=== PATIENT | male | born 1990 | race African-American/Black ===

== ENCOUNTER 2024-01-29 04:06 | Emergency (ER) | payer OTHER ==
[2024-01-29 04:15] VITALS: BMI 25.0
[2024-01-29] MEDS ORDERED: diphenhydrAMINE HCL 25 MG CAPSULE (FP) PO ONE (04:44)
[2024-01-29] MEDS ORDERED: FAMOTIDINE 10 MG TABLET ONE (04:44)
[2024-01-29] MEDS ORDERED: DEXAMETHASONE SOD PHOSPHATE 10 MG/1 ML VIAL ONE (04:45)
[2024-01-29] MEDS: FAMOTIDINE 10 MG TABLET PO ONE (04:49)
[2024-01-29] MEDS: diphenhydrAMINE HCL 25 MG CAPSULE (FP) PO ONE (04:50)
[2024-01-29] MEDS: DEXAMETHASONE LIQUID 0.5 MG/5 ML PO ONE (04:50)
[2024-01-29] MEDS: DEXAMETHASONE SOD PHOSPHATE 10 MG/1 ML VIAL IVPUSH ONE (04:57)
[2024-01-29 05:40] LABS: BASO % 0.6 % (0-2.0); EOS % 0.2 % (0-4.5); HEMATOCRIT 43.2 % (35.4-49); HEMOGLOBIN 14.2 GM/dL (11.7-16.9); LYMPH % 18.2 % (8-40); MCH 29.8 pg (25.7-33.7); MCHC 32.8 g/dl (32.0-35.9); MEAN CELL VOLUME 90.6 fl (80-96); MEAN PLT VOLUME 7.7 fl (7.5-11.1); MONO % 4.5 % (3.8-10.2); NEUT % 76.5 % (42.8-82.8); PLATELET COUNT 327 10^3/uL (134-434); RBC 4.77 M/mm3 (4.00-5.60); RDW 17.8 % (11.9-15.9); WHITE BLOOD COUNT 9.4 K/mm3 (4.0-10.0)
[2024-01-29 05:56] VITALS: BP 136/86; PULSE 89; RESP 18; TEMP 98.4
[2024-01-29 06:16] LABS: POTASSIUM 3.9 mmol/L (3.5-5.1)
[2024-01-29 06:18] LABS: ALBUMIN 3.3 g/dl (3.4-5.0); BLOOD UREA NITROGEN 15.8 mg/dL (7-18); CALCIUM 8.8 mg/dL (8.5-10.1)
[2024-01-29 06:21] LABS: CREATININE 0.8 mg/dL (0.55-1.3)
[2024-01-29 06:23] LABS: BILIRUBIN,TOTAL 0.7 mg/dL (0.2-1); TOT PROT 6.2 g/dl (6.4-8.2)
== END 2024-01-29 06:43 | disposition home or self-care (01) ==
LOC: JER 04:06
DX: T78.40XA Allergy, unspecified, initial encounter (principal); L29.9 Pruritus, unspecified; L50.0 Allergic urticaria; R19.7 Diarrhea, unspecified
CPT/HCPCS: 36415; 80053; 85025; 99283-25

== ENCOUNTER 2024-03-21 01:49 | Observation (INO) | payer OTHER ==
[2024-03-21] MEDS ORDERED: DEXAMETHASONE SOD PHOSPHATE 10 MG/1 ML VIAL IM ONE (02:17)
[2024-03-21] MEDS ORDERED: diphenhydrAMINE HCL 25 MG CAPSULE (FP) PO ONE (02:21)
[2024-03-21] MEDS ORDERED: FAMOTIDINE 20 MG TABLET ONE (02:21)
[2024-03-21] MEDS ORDERED: predniSONE 20 MG TABLET (UD) ONE (02:21)
[2024-03-21] MEDS: FAMOTIDINE 10 MG TABLET PO ONE ×2 (02:40)
[2024-03-21] MEDS: predniSONE 20 MG TABLET (UD) PO ONE (02:40)
[2024-03-21] MEDS: diphenhydrAMINE HCL 50 MG CAPSULE PO ONE (02:40)
[2024-03-21] MEDS ORDERED: EPINEPHrine/PF 1 MG/1 ML (1:1,000) AMPULE ONE (04:11)
[2024-03-21] MEDS ORDERED: TRANEXAMIC ACID 1000 MG/10 ML VIAL ONE (04:14)
[2024-03-21] MEDS: EPINEPHrine 1:1,000 0.3 MG/0.3 ML SYR IM ONE (04:14)
[2024-03-21] MEDS: TRANEXAMIC ACID 1000 MG/10 ML VIAL IVPB ONE (04:26)
[2024-03-21 06:37] LABS: HEMATOCRIT 39.2 % (35.4-49); HEMOGLOBIN 13.3 GM/dL (11.7-16.9); MCH 31.7 pg (25.7-33.7); MCHC 33.9 g/dl (32.0-35.9); MEAN CELL VOLUME 93.4 fl (80-96); MEAN PLT VOLUME 7.1 fl (7.5-11.1); PLATELET COUNT 329 10^3/uL (134-434); RDW 14.7 % (11.9-15.9); WHITE BLOOD COUNT 6.9 K/mm3 (4.0-10.0)
[2024-03-21 06:57] LABS: POTASSIUM 3.9 mmol/L (3.5-5.1)
[2024-03-21 07:00] LABS: CALCIUM 8.9 mg/dL (8.5-10.1)
[2024-03-21 07:01] LABS: ALBUMIN 3.5 g/dl (3.4-5.0); BLOOD UREA NITROGEN 8.8 mg/dL (7-18)
[2024-03-21 07:05] LABS: BILIRUBIN,TOTAL 2.3 mg/dL (0.2-1); TOT PROT 6.7 g/dl (6.4-8.2)
[2024-03-21] MEDS ORDERED: ENOXAPARIN NA (PORCINE) 40 MG/0.4 ML DISP.SYRIN SQ ONE (08:54)
[2024-03-21] MEDS: LACTATED RINGERS SOLUTION 1000 ML INFUS.BAG IV ONE (09:00)
[2024-03-21] MEDS: ENOXAPARIN NA (PORCINE) 40 MG/0.4 ML DISP.SYRIN SQ SCH (09:00)
[2024-03-21] MEDS: SODIUM CHLORIDE 0.9% 500 ML INFUS.BAG IV ONE (09:00)
[2024-03-21 09:13] LABS: ERYTHROCYTE SEDIMENTATION RATE 1 mm/hr (0-10)
[2024-03-21 09:21] LABS: BILIRUBIN,DIRECT 0.5 mg/dL (0.0-0.2)
[2024-03-21 09:26] LABS: ANISOCYTOSIS 0; MACROCYTOSIS 0; TARGET CELLS 1+
[2024-03-21 09:34] VITALS: RESP 18
[2024-03-21] MEDS: FAMOTIDINE 20 MG TABLET PO SCH (10:52)
[2024-03-21] MEDS: LORATADINE 10 MG TABLET PO SCH (10:52)
[2024-03-21] MEDS: amLODIPine BESYLATE 10 MG TABLET (FP) PO SCH (10:52)
[2024-03-21 11:27] VITALS: BMI 24.2
[2024-03-22 06:17] VITALS: BP 140/89; PULSE 91; TEMP 98.2
[2024-03-22 09:18] LABS: BASO % 1.1 % (0-2.0); EOS % 0.4 % (0-4.5); HEMATOCRIT 40.6 % (35.4-49); HEMOGLOBIN 13.4 GM/dL (11.7-16.9); LYMPH % 38.7 % (8-40); MCH 31.2 pg (25.7-33.7); MCHC 32.9 g/dl (32.0-35.9); MEAN CELL VOLUME 94.9 fl (80-96); MONO % 8.5 % (3.8-10.2); NEUT % 51.3 % (42.8-82.8); PLATELET COUNT 324 10^3/uL (134-434); RBC 4.28 M/mm3 (4.00-5.60); RDW 14.5 % (11.9-15.9); WHITE BLOOD COUNT 5.4 K/mm3 (4.0-10.0)
[2024-03-22 09:27] LABS: POTASSIUM 3.3 mmol/L (3.5-5.1)
[2024-03-22] MEDS: predniSONE 20 MG TABLET (UD) PO SCH (09:33)
[2024-03-22 09:34] LABS: CREATININE 0.8 mg/dL (0.55-1.3); PHOSPHOROUS 3.8 mg/dL (2.5-4.9)
[2024-03-22 09:35] LABS: BILIRUBIN,TOTAL 1.9 mg/dL (0.2-1); CALCIUM 9.3 mg/dL (8.5-10.1)
[2024-03-22 09:36] LABS: BLOOD UREA NITROGEN 6.4 mg/dL (7-18); MAGNESIUM 1.9 mg/dL (1.8-2.4); TOT PROT 6.3 g/dl (6.4-8.2)
[2024-03-22 09:37] LABS: ALBUMIN 3.3 g/dl (3.4-5.0)
[2024-03-22] MEDS ORDERED: predniSONE 20 MG TABLET (UD) PO SCH (10:00)
[2024-03-22] MEDS: POTASSIUM CHLORIDE ORAL LIQUID 20 MEQ/15 ML PO ONE (11:23)
[2024-03-24 14:09] LABS: COMPLEMENT C1Q COMPONENT < 1.2 ug Eq/mL (.)
== END 2024-03-22 12:39 | disposition home or self-care (01) ==
LOC: JER 01:49 → JERBED 06:34 → J5S 10:02
PROVIDERS: ADMIT Internal Medicine; ATTEND Internal Medicine
PROC: 3E023GC Introduction of Other Therapeutic Substance into Muscle, Percutaneous Approach (ICD-10-PCS; principal; 2024-03-21)
PROC: 3E0337Z Introduction of Electrolytic and Water Balance Substance into Peripheral Vein, Percutaneous Approach (ICD-10-PCS; 2024-03-21)
DX: T78.3XXA Angioneurotic edema, initial encounter (principal); T78.40XA Allergy, unspecified, initial encounter; X58.XXXA Exposure to other specified factors, initial encounter; Y93.89 Activity, other specified; E80.6 Other disorders of bilirubin metabolism; Y92.89 Other specified places as the place of occurrence of the external cause; I10 Essential (primary) hypertension; K21.9 Gastro-esophageal reflux disease without esophagitis; F17.210 Nicotine dependence, cigarettes, uncomplicated
CPT/HCPCS: 36415; 76705-TC; 80053; 82248; 83735; 84100; 85025; 85651; 86140; 86160; 86161; 86162; 86332; 86704; 86709; 86803; 87340; 87517; 93005; 93010; 96372; 96374; 99285-25; G0378; J0171

== ENCOUNTER 2024-05-26 01:53 | Emergency (ER) | payer OTHER ==
[2024-05-26 02:03] VITALS: TEMP 99; BMI 22.1
[2024-05-26] MEDS ORDERED: FAMOTIDINE 20 MG/50 ML IVPB 20 MG/50 ML MG IVPB ONE (02:40)
[2024-05-26] MEDS ORDERED: ONDANSETRON 4 MG/2 ML VIAL ONE (02:40)
[2024-05-26] MEDS ORDERED: ACETAMINOPHEN INJECTION 100 ML IVPB ONE (02:40)
[2024-05-26] MEDS: FAMOTIDINE 20 MG/50 ML IVPB 20 MG/50 ML MG IVPB ONE (02:57)
[2024-05-26] MEDS: ONDANSETRON 4 MG/2 ML VIAL IVPUSH ONE (02:57)
[2024-05-26] MEDS: ACETAMINOPHEN 1000 MG/100 ML BAG IVPB ONE (02:57)
[2024-05-26] MEDS: SODIUM CHLORIDE 0.9% 500 ML INFUS.BAG IV ONE ×2 (02:57→04:58)
[2024-05-26 03:02] LABS: VENOUS BASE EXCESS 2.4 mmol/L (-2-2); VENOUS O2 SATURATION 92.3 % (70-80); VENOUS PCO2 35.7 mmHg (38-52); VENOUS PH 7.474 (7.310-7.410)
[2024-05-26 03:06] LABS: BASO % 1.5 % (0-2.0); EOS % 0.4 % (0-4.5); HEMATOCRIT 44.4 % (35.4-49); LYMPH % 57.4 % (8-40); MCH 30.7 pg (25.7-33.7); MCHC 33.8 g/dl (32.0-35.9); MEAN CELL VOLUME 90.9 fl (80-96); MEAN PLT VOLUME 7.5 fl (7.5-11.1); MONO % 7.4 % (3.8-10.2); NEUT % 33.3 % (42.8-82.8); PLATELET COUNT 281 10^3/uL (134-434); RBC 4.88 M/mm3 (4.00-5.60); RDW 13.5 % (11.9-15.9); WHITE BLOOD COUNT 4.5 K/mm3 (4.0-10.0)
[2024-05-26 03:17] LABS: PROTHROMBIN TIME (PATIENT) 11.3 SEC (9.7-13.0)
[2024-05-26 03:19] LABS: ACTIVATED PTT 28.9 SECONDS (25.2-36.5)
[2024-05-26 03:20] LABS: POTASSIUM 3.4 mmol/L (3.5-5.1)
[2024-05-26 03:24] LABS: ALBUMIN 4.1 g/dl (3.4-5.0); BLOOD UREA NITROGEN 7.2 mg/dL (7-18); CALCIUM 9.1 mg/dL (8.5-10.1)
[2024-05-26 03:26] LABS: CREATININE 0.8 mg/dL (0.55-1.3)
[2024-05-26 03:28] LABS: BILIRUBIN,TOTAL 1.2 mg/dL (0.2-1); TOT PROT 7.2 g/dl (6.4-8.2)
[2024-05-26 03:51] LABS: LACTIC ACID 3.8 mmol/L (0.4-2.0)
[2024-05-26 04:10] LABS: MAGNESIUM 1.9 mg/dL (1.8-2.4)
[2024-05-26 04:10] LABS: EPI CELLS 34 /uL (0-25.1); HYALINE CASTS 21 /uL (0-3.1); URINE APPEARANCE CLEAR; URINE BACTERIA 5 /uL (0-1359); URINE BILIRUBIN NEGATIVE (NEGATIVE); URINE COLOR YELLOW; URINE GLUCOSE (UA) NEGATIVE (NEGATIVE); URINE KETONE TRACE (NEGATIVE); URINE LEUK ESTERASE NEGATIVE (NEGATIVE); URINE NITRITE NEGATIVE (NEGATIVE); URINE PROTEIN 2+ (NEGATIVE); URINE RBC 8 /uL (0-23.9); URINE WBC 51 /uL (0-25.8)
[2024-05-26] MEDS ORDERED: SUCRALFATE 1 GM TABLET (FP) ONE (05:33)
[2024-05-26] MEDS ORDERED: MAG HYDROX/AL HYDROX/SIMETH 30 ML UNIT-DOSE CUP ONE (05:34)
[2024-05-26] MEDS: SUCRALFATE 1 GM TABLET (FP) PO ONE (05:36)
[2024-05-26] MEDS: MAG HYDROX/AL HYDROX/SIMETH 30 ML UNIT-DOSE CUP PO ONE (05:36)
[2024-05-26 05:51] LABS: LACTIC ACID 2.4 mmol/L (0.4-2.0)
[2024-05-26 06:06] VITALS: BP 154/100; PULSE 88; RESP 16
== END 2024-05-26 06:25 | disposition home or self-care (01) ==
LOC: JER 01:53
PROC: 3E033GC Introduction of Other Therapeutic Substance into Peripheral Vein, Percutaneous Approach (ICD-10-PCS; principal; 2024-05-26)
PROC: 3E033GC Introduction of Other Therapeutic Substance into Peripheral Vein, Percutaneous Approach (ICD-10-PCS; 2024-05-26)
PROC: 3E033NZ Introduction of Analgesics, Hypnotics, Sedatives into Peripheral Vein, Percutaneous Approach (ICD-10-PCS; 2024-05-26)
DX: R10.13 Epigastric pain (principal); R11.2 Nausea with vomiting, unspecified; F10.90 Alcohol use, unspecified, uncomplicated; Y90.9 Presence of alcohol in blood, level not specified
CPT/HCPCS: 36415; 74177-TC; 80053; 81003; 82803; 83605; 83690; 83735; 84300; 85025; 85610; 85730; 86850; 86900; 86901; 87086; 99285-25; J0131; Q9967

== ENCOUNTER 2024-05-26 08:56 | Inpatient (IN) | payer OTHER ==
[2024-05-26 09:28] VITALS: BMI 22.2
[2024-05-26] MEDS ORDERED: guaiFENesin 600 MG TABLET.ER (FP) PO PRN (09:58)
[2024-05-26] MEDS ORDERED: MAGNESIUM HYDROX 2400MG/30ML ORAL SUSPENSION 30 ML CUP PO PRN (09:58)
[2024-05-26] MEDS ORDERED: hydrOXYzine PAMOATE 25 MG CAPSULE (FP) PO PRN (09:58)
[2024-05-26] MEDS ORDERED: ACETAMINOPHEN 325 MG TABLET (FP) PO PRN (09:58)
[2024-05-26] MEDS ORDERED: NALOXONE (NARCAN) HCL 4 MG/0.1 ML SPRAY NS PRN (09:58)
[2024-05-26] MEDS ORDERED: ONDANSETRON *ODT* 4 MG TABLET SL PRN (09:58)
[2024-05-26] MEDS ORDERED: IBUPROFEN 600 MG TABLET (FP) PO PRN (09:58)
[2024-05-26] MEDS ORDERED: LOPERAMIDE HCL 2 MG CAPSULE PO PRN (09:58)
[2024-05-26] MEDS ORDERED: NALOXONE HCL 0.4 MG/ML VIAL IM PRN (09:58)
[2024-05-26] MEDS ORDERED: BENZOCAINE/MENTHOL (CHLORASEPTIC ) LOZENGE MM PRN (09:58)
[2024-05-26] MEDS ORDERED: MAG HYDROX/AL HYDROX/SIMETH 30 ML UNIT-DOSE CUP PO PRN (09:58)
[2024-05-26] MEDS ORDERED: BENZONATATE 200 MG CAPSULE PO PRN (09:58)
[2024-05-26] MEDS ORDERED: POLYETHYLENE GLYCOL (HEALTHYLAX) 3350 17 GM PACKET PO PRN (09:58)
[2024-05-26] MEDS ORDERED: IBUPROFEN 400 MG TABLET (FP) PO PRN (09:58)
[2024-05-26] MEDS ORDERED: DICYCLOMINE HCL 10 MG CAPSULE PO PRN (09:58)
[2024-05-26] MEDS: NICOTINE 7 MG/24 HOURS TOPICAL PATCH TD SCH (10:34)
[2024-05-26] MEDS: PRENATAL VITAMINS W/ FOLIC ACID TABLET (FP) PO SCH (10:34)
[2024-05-26] MEDS: BISMUTH SUBSALICYLATE 524 MG/30 ML PO PRN (10:40)
[2024-05-26] MEDS ORDERED: BISMUTH SUBSALICYLATE 262 MG/15 ML BTL PO PRN (11:02)
[2024-05-26] MEDS: amLODIPine BESYLATE 10 MG TABLET (FP) PO ONE (13:55)
[2024-05-26] MEDS: chlordiazePOXIDE HCL 25 MG CAPSULE PO PRN (13:55)
[2024-05-26] MEDS: chlordiazePOXIDE HCL 25 MG CAPSULE PO SCH (17:28)
[2024-05-26] MEDS: THIAMINE 100 MG TABLET PO SCH (22:26)
[2024-05-26] MEDS: MONTELUKAST NA 10 MG TABLET PO SCH (22:26)
[2024-05-26] MEDS: MELATONIN 5 MG TABLETS PO SCH (22:27)
[2024-05-27] MEDS: FAMOTIDINE 20 MG TABLET PO SCH (09:55)
[2024-05-27] MEDS: amLODIPine BESYLATE 10 MG TABLET (FP) PO SCH (09:55)
[2024-05-27] MEDS: METHOCARBAMOL 500 MG TABLET PO PRN (09:55)
[2024-05-27] MEDS: LORATADINE 10 MG TABLET PO SCH (09:55)
[2024-05-27 11:58] LABS: HEMATOCRIT 42.8 % (35.4-49); HEMOGLOBIN 14.1 GM/dL (11.7-16.9); MCH 30.6 pg (25.7-33.7); MCHC 32.9 g/dl (32.0-35.9); MEAN CELL VOLUME 93.2 fl (80-96); MEAN PLT VOLUME 8.1 fl (7.5-11.1); PLATELET COUNT 249 10^3/uL (134-434); RBC 4.59 M/mm3 (4.00-5.60); RDW 13.3 % (11.9-15.9); WHITE BLOOD COUNT 3.7 K/mm3 (4.0-10.0)
[2024-05-27] MEDS: PNEUMOC 20-VAL CONJ-DIP CRM/PF 0.5 ML SYRINGE IM ONE (12:04)
[2024-05-27 12:07] LABS: POTASSIUM 3.6 mmol/L (3.5-5.1)
[2024-05-27 12:18] LABS: BLOOD UREA NITROGEN 5.1 mg/dL (7-18); CALCIUM 9.4 mg/dL (8.5-10.1)
[2024-05-27 12:19] LABS: ALBUMIN 4.2 g/dl (3.4-5.0)
[2024-05-27 12:22] LABS: CREATININE 0.8 mg/dL (0.55-1.3)
[2024-05-27 12:23] LABS: BILIRUBIN,TOTAL 1.9 mg/dL (0.2-1); TOT PROT 7.3 g/dl (6.4-8.2)
[2024-05-27] MEDS: MELATONIN 5 MG TABLETS PO SCH (22:25)
[2024-05-28] MEDS: chlordiazePOXIDE HCL 25 MG CAPSULE PO SCH (05:54)
[2024-05-29] MEDS ORDERED: chlordiazePOXIDE HCL 10 MG CAPSULE PO PRN
[2024-05-29] MEDS: chlordiazePOXIDE HCL 10 MG CAPSULE PO SCH (05:41)
[2024-05-29] MEDS: chlordiazePOXIDE HCL 25 MG CAPSULE PO ONE (14:29)
[2024-05-29] MEDS: LACTULOSE 20 GM/30 ML UDC (FOR ORAL USE ONLY) PO SCH (17:46)
[2024-05-30] MEDS: chlordiazePOXIDE HCL 10 MG CAPSULE PO SCH (05:42)
[2024-05-31] MEDS: chlordiazePOXIDE HCL 10 MG CAPSULE PO ONE (05:35)
[2024-05-31 08:56] VITALS: BP 136/88; PULSE 90; RESP 17; TEMP 98.9
== END 2024-05-31 10:00 | disposition home or self-care (01) | DRG 775 ==
LOC: YASAS 08:56 → Y6N 11:20
PROVIDERS: ADMIT Allergy & Immunology; ATTEND Family Medicine Addiction Medicine
PROC: HZ2ZZZZ Detoxification Services for Substance Abuse Treatment (ICD-10-PCS; principal; 2024-05-26)
DX: F10.230 Alcohol dependence with withdrawal, uncomplicated (principal); F17.210 Nicotine dependence, cigarettes, uncomplicated; F10.282 Alcohol dependence with alcohol-induced sleep disorder; F32.9 Major depressive disorder, single episode, unspecified; F41.9 Anxiety disorder, unspecified; I10 Essential (primary) hypertension; K21.9 Gastro-esophageal reflux disease without esophagitis; R79.89 Other specified abnormal findings of blood chemistry; Z91.410 Personal history of adult physical and sexual abuse; Z63.0 Problems in relationship with spouse or partner
CPT/HCPCS: 36415; 74177-TC; 80053; 80305; 80307; 81003; 82140; 82247; 82803; 83605; 83690; 83735; 84300; 85025; 85027; 85610; 85730; 86780; 86850; 86900; 86901; 87086; 90677; 93005; 93010; G0009; J0131; Q9967

== ENCOUNTER 2024-06-05 11:46 | Inpatient (IN) | payer OTHER ==
[2024-06-05 12:06] VITALS: BMI 22.9
[2024-06-05] MEDS ORDERED: diazePAM 5 MG TABLET PO PRN (13:47)
[2024-06-05] MEDS ORDERED: IBUPROFEN 400 MG TABLET (FP) PO PRN (13:48)
[2024-06-05] MEDS ORDERED: guaiFENesin 600 MG TABLET.ER (FP) PO PRN (13:48)
[2024-06-05] MEDS ORDERED: BENZOCAINE/MENTHOL (CHLORASEPTIC ) LOZENGE MM PRN (13:48)
[2024-06-05] MEDS ORDERED: BENZONATATE 200 MG CAPSULE PO PRN (13:48)
[2024-06-05] MEDS ORDERED: POLYETHYLENE GLYCOL (HEALTHYLAX) 3350 17 GM PACKET PO PRN (13:48)
[2024-06-05] MEDS ORDERED: ONDANSETRON *ODT* 4 MG TABLET SL PRN (13:48)
[2024-06-05] MEDS ORDERED: NALOXONE (NARCAN) HCL 4 MG/0.1 ML SPRAY NS PRN (13:48)
[2024-06-05] MEDS ORDERED: NALOXONE HCL 0.4 MG/ML VIAL IM PRN (13:48)
[2024-06-05] MEDS ORDERED: MAGNESIUM HYDROX 2400MG/30ML ORAL SUSPENSION 30 ML CUP PO PRN (13:48)
[2024-06-05] MEDS ORDERED: LOPERAMIDE HCL 2 MG CAPSULE PO PRN (13:48)
[2024-06-05] MEDS ORDERED: ACETAMINOPHEN 325 MG TABLET (FP) PO PRN (13:48)
[2024-06-05] MEDS ORDERED: ALBUTEROL SO4 HFA INHALER IH PRN (13:54)
[2024-06-05] MEDS: amLODIPine BESYLATE 10 MG TABLET (FP) PO SCH (14:17)
[2024-06-05] MEDS: NICOTINE 21 MG/24 HOURS TOPICAL PATCH TD SCH (14:22)
[2024-06-05] MEDS: LACTULOSE 20 GM/30 ML UDC (FOR ORAL USE ONLY) PO SCH (14:23)
[2024-06-05] MEDS: FAMOTIDINE 20 MG TABLET PO SCH (14:24)
[2024-06-05] MEDS ORDERED: BACITRACIN 0.9 GM PACKET TP SCH (14:31)
[2024-06-05] MEDS: BACITRACIN 0.9 GM PACKET TP SCH (14:54)
[2024-06-05] MEDS: BACITRACIN ZINC 15 GM TUBE TOPICAL OINTMENT TP SCH (15:00)
[2024-06-05] MEDS: diazePAM 5 MG TABLET PO SCH (17:17)
[2024-06-05] MEDS: DICYCLOMINE HCL 10 MG CAPSULE PO PRN (20:10)
[2024-06-05] MEDS: MONTELUKAST NA 10 MG TABLET PO SCH (22:25)
[2024-06-05] MEDS: MELATONIN 5 MG TABLETS PO SCH (22:25)
[2024-06-05] MEDS: THIAMINE 100 MG TABLET PO SCH (22:25)
[2024-06-05] MEDS: METHOCARBAMOL 500 MG TABLET PO PRN (22:26)
[2024-06-06] MEDS: BISMUTH SUBSALICYLATE 524 MG/30 ML PO PRN (00:56)
[2024-06-06] MEDS: MAG HYDROX/AL HYDROX/SIMETH 30 ML UNIT-DOSE CUP PO PRN (04:36)
[2024-06-06 09:03] LABS: HEMATOCRIT 41.5 % (35.4-49); MCH 30.3 pg (25.7-33.7); MCHC 33.8 g/dl (32.0-35.9); MEAN CELL VOLUME 89.7 fl (80-96); MEAN PLT VOLUME 7.6 fl (7.5-11.1); PLATELET COUNT 329 10^3/uL (134-434); RBC 4.63 M/mm3 (4.00-5.60); RDW 13.7 % (11.9-15.9)
[2024-06-06 09:05] LABS: CHLORIDE 101 mmol/L (98-107); POTASSIUM 3.5 mmol/L (3.5-5.1); SODIUM 137 mmol/L (136-145)
[2024-06-06 09:08] LABS: GLUCOSE,RANDOM 115 mg/dL (74-106)
[2024-06-06 09:10] LABS: ALBUMIN 3.8 g/dl (3.4-5.0); ANION GAP 7 mmol/L (4-13); BLOOD UREA NITROGEN 5.7 mg/dL (7-18); CALCIUM 9.2 mg/dL (8.5-10.1); CO2 29 mmol/L (21-32)
[2024-06-06 09:12] LABS: CREATININE 0.8 mg/dL (0.55-1.3); SGOT/AST 51 U/L (15-37); SGPT/ALT 65 U/L (13-61)
[2024-06-06 09:14] LABS: ALK PHOS 95 U/L (45-117); BILIRUBIN,TOTAL 1.4 mg/dL (0.2-1)
[2024-06-06] MEDS: PRENATAL VITAMINS W/ FOLIC ACID TABLET (FP) PO SCH (10:16)
[2024-06-06] MEDS ORDERED: cloNIDine HCL 0.1 MG TABLET PO PRN (13:36)
[2024-06-06] MEDS: LISINOPRIL 10 MG TABLET PO SCH (14:30)
[2024-06-06] MEDS: TRIMETHOBENZAMIDE HCL 200MG/2ML INJ IM PRN (20:07)
[2024-06-06] MEDS: PANTOPRAZOLE 40 MG TABLET PO ONE (20:07)
[2024-06-06] MEDS: MELATONIN 5 MG TABLETS PO SCH (22:08)
[2024-06-07] MEDS: diazePAM 5 MG TABLET PO SCH (05:18)
[2024-06-08] MEDS: diazePAM 5 MG TABLET PO SCH (05:18)
[2024-06-08] MEDS: LISINOPRIL 5 MG TABLET PO SCH (09:40)
[2024-06-08] MEDS: SUVOREXANT 10 MG TABLET PO PRN (22:17)
[2024-06-08] MEDS: hydrOXYzine PAMOATE 25 MG CAPSULE (FP) PO PRN (22:18)
[2024-06-09] MEDS: IBUPROFEN 600 MG TABLET (FP) PO PRN (01:27)
[2024-06-09] MEDS: diazePAM 5 MG TABLET PO ONE (05:11)
[2024-06-09] MEDS: SUCRALFATE 1 GM TABLET (FP) PO SCH (06:04)
[2024-06-09 09:47] VITALS: BP 112/70; PULSE 101; RESP 20; TEMP 97.8
== END 2024-06-09 09:49 | disposition home or self-care (01) | DRG 775 ==
LOC: YASAS 11:46 → Y6N 13:21
PROVIDERS: ADMIT Allergy & Immunology; ATTEND Surgery
PROC: HZ2ZZZZ Detoxification Services for Substance Abuse Treatment (ICD-10-PCS; principal; 2024-06-05)
DX: F10.230 Alcohol dependence with withdrawal, uncomplicated (principal); F10.282 Alcohol dependence with alcohol-induced sleep disorder; F17.210 Nicotine dependence, cigarettes, uncomplicated; F41.9 Anxiety disorder, unspecified; F32.A Depression, unspecified; I10 Essential (primary) hypertension; E72.20 Disorder of urea cycle metabolism, unspecified; K21.9 Gastro-esophageal reflux disease without esophagitis; J45.20 Mild intermittent asthma, uncomplicated; G47.00 Insomnia, unspecified; Z91.51 Personal history of suicidal behavior; Z56.0 Unemployment, unspecified
CPT/HCPCS: 36415; 80053; 80305; 80307; 82140; 82247; 85027; 86780; 93005; 93010

== ENCOUNTER 2024-11-12 02:53 | Inpatient (IN) | payer SELFPAY ==
[2024-11-12 03:20] VITALS: BMI 20.6
[2024-11-12] MEDS ORDERED: LOPERAMIDE HCL 2 MG CAPSULE PO PRN (04:23)
[2024-11-12] MEDS ORDERED: ONDANSETRON *ODT* 4 MG TABLET SL PRN (04:23)
[2024-11-12] MEDS ORDERED: BENZOCAINE/MENTHOL (CHLORASEPTIC ) LOZENGE MM PRN (04:23)
[2024-11-12] MEDS ORDERED: POLYETHYLENE GLYCOL (HEALTHYLAX) 3350 17 GM PACKET PO PRN (04:23)
[2024-11-12] MEDS ORDERED: NICOTINE POLACRILEX 2 MG GUM BUC PRN (04:23)
[2024-11-12] MEDS ORDERED: NALOXONE (NARCAN) HCL 4 MG/0.1 ML SPRAY NS PRN (04:23)
[2024-11-12] MEDS ORDERED: DICYCLOMINE HCL 10 MG CAPSULE PO PRN (04:23)
[2024-11-12] MEDS ORDERED: BISMUTH SUBSALICYLATE 524 MG/30 ML PO PRN (04:23)
[2024-11-12] MEDS ORDERED: ACETAMINOPHEN 325 MG TABLET (FP) PO PRN (04:23)
[2024-11-12] MEDS ORDERED: MAG HYDROX/AL HYDROX/SIMETH 30 ML UNIT-DOSE CUP PO PRN (04:23)
[2024-11-12] MEDS ORDERED: IBUPROFEN 400 MG TABLET (FP) PO PRN (04:23)
[2024-11-12] MEDS ORDERED: BENZONATATE 200 MG CAPSULE PO PRN (04:23)
[2024-11-12] MEDS ORDERED: MAGNESIUM HYDROX 2400MG/30ML ORAL SUSPENSION 30 ML CUP PO PRN (04:23)
[2024-11-12] MEDS ORDERED: guaiFENesin 600 MG TABLET.ER (FP) PO PRN (04:23)
[2024-11-12] MEDS ORDERED: chlordiazePOXIDE HCL 25 MG CAPSULE PO PRN (04:25)
[2024-11-12] MEDS: chlordiazePOXIDE HCL 25 MG CAPSULE PO SCH (05:45)
[2024-11-12] MEDS: NICOTINE 14 MG/24 HOURS TOPICAL PATCH TD SCH (10:10)
[2024-11-12] MEDS: PRENATAL VITAMINS W/ FOLIC ACID TABLET (FP) PO SCH (10:11)
[2024-11-12] MEDS: MELATONIN 5 MG TABLETS PO SCH (22:57)
[2024-11-12] MEDS: THIAMINE 100 MG TABLET PO SCH (22:57)
[2024-11-12] MEDS: METHOCARBAMOL 500 MG TABLET PO PRN (22:58)
[2024-11-13] MEDS: chlordiazePOXIDE HCL 25 MG CAPSULE PO SCH (05:58)
[2024-11-13] MEDS: IBUPROFEN 600 MG TABLET (FP) PO PRN (06:21)
[2024-11-13 09:21] LABS: POTASSIUM 3.6 mmol/L (3.5-5.1)
[2024-11-13 09:26] LABS: ALBUMIN 3.6 g/dl (3.4-5.0); BLOOD UREA NITROGEN 5.7 mg/dL (7-18); CALCIUM 9.2 mg/dL (8.5-10.1)
[2024-11-13 09:27] LABS: HEMATOCRIT 38.5 % (35.4-49); HEMOGLOBIN 12.8 GM/dL (11.7-16.9); MCH 31.7 pg (25.7-33.7); MCHC 33.2 g/dl (32.0-35.9); MEAN CELL VOLUME 95.5 fl (80-96); MEAN PLT VOLUME 8.7 fl (7.5-11.1); PLATELET COUNT 167 10^3/uL (134-434); RBC 4.03 M/mm3 (4.00-5.60); RDW 15.5 % (11.9-15.9); WHITE BLOOD COUNT 3.6 K/mm3 (4.0-10.0)
[2024-11-13 09:29] LABS: CREATININE 0.7 mg/dL (0.55-1.3)
[2024-11-13 09:31] LABS: TOT PROT 6.9 g/dl (6.4-8.2)
[2024-11-13] MEDS ORDERED: ALBUTEROL SO4 HFA INHALER IH PRN (09:32)
[2024-11-13] MEDS: amLODIPine BESYLATE 10 MG TABLET (FP) PO SCH (10:13)
[2024-11-13] MEDS: FAMOTIDINE 20 MG TABLET PO SCH (10:13)
[2024-11-13] MEDS: hydrOXYzine PAMOATE 25 MG CAPSULE (FP) PO PRN (22:12)
[2024-11-14] MEDS ORDERED: chlordiazePOXIDE HCL 10 MG CAPSULE PO PRN
[2024-11-14] MEDS: chlordiazePOXIDE HCL 10 MG CAPSULE PO SCH (05:46)
[2024-11-15] MEDS ORDERED: chlordiazePOXIDE HCL 10 MG CAPSULE PO SCH (05:00)
[2024-11-15] MEDS: chlordiazePOXIDE 5 MG CAPSULE PO SCH (05:32)
[2024-11-15] MEDS: NALOXONE (NYS OPIOID OVERDOSE PROGRAM) 4 MG/0.1 ML SPRAY NS SCH (11:26)
[2024-11-16] MEDS ORDERED: chlordiazePOXIDE HCL 10 MG CAPSULE PO ONE (05:00)
[2024-11-16] MEDS: chlordiazePOXIDE 5 MG CAPSULE PO ONE (05:48)
[2024-11-16 09:29] VITALS: RESP 18; TEMP 98
[2024-11-16 13:46] VITALS: BP 107/73; PULSE 90
== END 2024-11-16 13:08 | disposition home or self-care (01) | DRG 775 ==
LOC: YASAS 02:53 → Y6N 04:38
PROVIDERS: ADMIT Allergy & Immunology; ATTEND Allergy & Immunology
PROC: HZ2ZZZZ Detoxification Services for Substance Abuse Treatment (ICD-10-PCS; principal; 2024-11-12)
DX: F10.230 Alcohol dependence with withdrawal, uncomplicated (principal); F17.213 Nicotine dependence, cigarettes, with withdrawal; F41.9 Anxiety disorder, unspecified; F32.A Depression, unspecified; I10 Essential (primary) hypertension; J45.20 Mild intermittent asthma, uncomplicated; K21.9 Gastro-esophageal reflux disease without esophagitis; R79.89 Other specified abnormal findings of blood chemistry; Z99.89 Dependence on other enabling machines and devices; Z88.8 Allergy status to other drugs, medicaments and biological substances
CPT/HCPCS: 36415; 71046-TC-FY; 80053; 80305; 80307; 83735; 84484; 85025; 85027; 86780; 86803; 87389; 93005; 93010